=== PATIENT | female | born 2000 | race Caucasian/White ===

== ENCOUNTER → 2021-03-03 | Outpatient (CLI) | payer OTHER | LOC: M LAB 08:55 | PROVIDERS: ATTEND Registered Nurse | DX: Z39.0 Encounter for care and examination of mother immediately after delivery (principal) ==

== ENCOUNTER → 2021-03-06 | Outpatient (CLI) | payer OTHER | LOC: M LAB 09:53 | PROVIDERS: ATTEND Registered Nurse | DX: O36.80X0 Pregnancy with inconclusive fetal viability, not applicable or unspecified (principal); Z3A.00 Weeks of gestation of pregnancy not specified ==

== ENCOUNTER 2021-08-02 17:28 | Outpatient (CLI) | payer OTHER ==
[~2021-08-02] VITALS: Ht 162.6 cm; Wt 70.6 kg
[2021-08-02 17:44] VITALS: BP 112/65
[2021-08-02] MEDS ORDERED: PRENTAB9 PO ×2 (17:53)
[2021-08-02] MEDS ORDERED: ASPI81CH33 PO (17:53)
[2021-08-02 19:01] LABS: APPEARANCE, URINE HAZY (CLEAR); BACTERIA, URINE AUTO 2+ (NEGATIVE); BILIRUBIN, URINE AUTO NEGATIVE (NEGATIVE); BLOOD, URINE BLOOD NEGATIVE (NEGATIVE); COLOR, URINE YELLOW (YELLOW); GLUCOSE, URINE (UA) AUTO 2+ mg/dL (NEGATIVE); KETONE, URINE AUTO NEGATIVE (NEGATIVE); LEUKOCYTE ESTERASE, URINE AUTO 2+ (NEGATIVE); MUCUS, URINE SMALL (NEGATIVE); NITRITE, URINE AUTO NEGATIVE (NEGATIVE); PROTEIN, URINE AUTO NEGATIVE (NEGATIVE); RBC, URINE AUTO 1 /HPF (0-3); SPECIFIC GRAVITY URINE AUTO 1.014 (1.002-1.035); SQUAMOUS EPITHELIAL CELL UR AU 4 /HPF (0-6); WBC, URINE AUTO 4 /HPF (0-3)
[2021-09-14] MEDS ORDERED: ACET325C5 PO (12:10)
== END 2021-10-26 20:54 | disposition home or self-care (01) ==
LOC: M LDO 17:28
PROVIDERS: ATTEND Obstetrics & Gynecology
DX: O26.892 Other specified pregnancy related conditions, second trimester (principal); R25.2 Cramp and spasm; R10.2 Pelvic and perineal pain; Z87.59 Personal history of other complications of pregnancy, childbirth and the puerperium; Z91.013 Allergy to seafood; Z3A.27 27 weeks gestation of pregnancy
CPT/HCPCS: 59025; 81001; 87088; 87186; G0378; G0463

== ENCOUNTER 2021-09-11 11:19 | Outpatient (CLI) | payer OTHER ==
[~2021-09-11] VITALS: Ht 162.6 cm; Wt 71.2 kg
[~2021-09-11 11:19] MED LIST: ASPI81CH33 PO; PRENTAB9 PO
[2021-09-11 11:40] VITALS: BP 115/67
[2021-09-11] MEDS ORDERED: HOME MED LIST COMPLETE! XX SCH (12:20)
[2021-09-11] MEDS ORDERED: BETAMETHASONE SOLUSPAN 6MG/ML 5ML VIAL (J0702 PER 3MG) IM ONE (13:20)
== END 2021-09-11 13:35 | disposition home or self-care (01) ==
LOC: M LDO 11:19
PROVIDERS: ATTEND Obstetrics & Gynecology
DX: O26.893 Other specified pregnancy related conditions, third trimester (principal); R25.2 Cramp and spasm; Z3A.32 32 weeks gestation of pregnancy; O46.93 Antepartum hemorrhage, unspecified, third trimester; Z91.040 Latex allergy status; Z91.013 Allergy to seafood
CPT/HCPCS: 59025; 76815; 96372; G0378; G0463; J0702

== ENCOUNTER 2021-09-12 13:40 | Outpatient (CLI) | payer OTHER ==
[~2021-09-12] VITALS: Ht 162.6 cm; Wt 70.3 kg
[2021-09-12 13:56] VITALS: BP 123/76
[2021-09-12] MEDS ORDERED: HOME MED LIST COMPLETE! XX SCH (14:00)
[2021-09-12] MEDS ORDERED: BETAMETHASONE SOLUSPAN 6MG/ML 5ML VIAL (J0702 PER 3MG) IM ONE (14:10)
[2021-09-12] MEDS ORDERED: cefTRIAXone SOD 2 GM in D5W MINI-BAG PLUS 50 ML IV ONE (15:40)
[2021-09-12 15:41] VITALS: BP 117/69
== END 2021-09-12 17:02 | disposition home or self-care (01) ==
LOC: M LDO 13:40
PROVIDERS: ATTEND Obstetrics & Gynecology
DX: O46.93 Antepartum hemorrhage, unspecified, third trimester (principal); Z3A.32 32 weeks gestation of pregnancy; Z91.040 Latex allergy status; Z91.030 Bee allergy status
CPT/HCPCS: 59025; 81001; 87086; 96365; 96372; G0378; G0463; J0696; J0702

== ENCOUNTER 2021-09-14 11:50 | Outpatient (CLI) | payer OTHER ==
[2021-09-14] VITALS (7 sets, daily range): BP systolic 114–155; BP diastolic 59–77
[~2021-09-14] VITALS: Ht 162.6 cm; Wt 70.3 kg
[2021-09-14] MEDS ORDERED: ACET325C5 PO (12:10)
[2021-09-14 14:54] LABS: GC DNA AMPLIFICATION NEGATIVE (NEGATIVE)
[2021-09-14 14:55] LABS: HEMATOCRIT 34.3 % (36.0-47.0); HEMOGLOBIN 11.3 g/dl (12.0-15.5); MEAN CORPUSCULAR HEMOGLOBIN 29.9 pg (27.0-33.0); MEAN CORPUSCULAR HGB CONC 32.9 g/dl (32.0-36.5); MEAN CORPUSCULAR VOLUME 90.7 fl (80.0-96.0); PLATELET COUNT, AUTOMATED 150 10^3/uL (150-450); RED BLOOD COUNT 3.78 10^6/uL (4.00-5.40); WHITE BLOOD COUNT 8.1 10^3/uL (4.0-10.0)
[2021-09-14 15:10] LABS: INR 0.9; PARTIAL THROMBOPLASTIN TIME 26.4 SECONDS (25.9-37.0); PROTHROMBIN TIME 12.6 SECONDS (12.7-14.5)
[2021-09-14 15:24] LABS: COLLAGEN EPINEPHRINE 201 SECONDS (74-162)
[2021-09-14 15:44] LABS: COLLAGEN ADP 117 SECONDS (56-103)
[2021-09-14] MEDS ORDERED: ACETAMINOPHEN 500 MG TAB PO ONE (20:45)
== END 2021-09-14 21:57 | disposition home or self-care (01) ==
LOC: M LDO 11:50
PROVIDERS: ATTEND Obstetrics & Gynecology
DX: O46.93 Antepartum hemorrhage, unspecified, third trimester (principal); Z3A.33 33 weeks gestation of pregnancy; Z91.040 Latex allergy status; Z91.013 Allergy to seafood; O26.893 Other specified pregnancy related conditions, third trimester; R31.9 Hematuria, unspecified
CPT/HCPCS: 36415; 59025; 76811; 76815; 76820; 81001; 85027; 85384; 85460; 85576; 85610; 85730; 87086; 87810; 87850; G0463

== ENCOUNTER 2021-10-10 21:14 | Outpatient (CLI) | payer OTHER ==
[~2021-10-10] VITALS: Ht 162.6 cm; Wt 71.9 kg
[~2021-10-10 21:14] MED LIST changes: +ACET325C5 PO
[2021-10-10 21:29] VITALS: BP 129/77
[2021-10-10] MEDS ORDERED: HOME MED LIST COMPLETE! XX SCH (21:45)
== END 2021-10-10 22:38 | disposition home or self-care (01) ==
LOC: M LDO 21:14
PROVIDERS: ATTEND Obstetrics & Gynecology
DX: O47.1 False labor at or after 37 completed weeks of gestation (principal); Z3A.37 37 weeks gestation of pregnancy; O36.5930 Maternal care for other known or suspected poor fetal growth, third trimester, not applicable or unspecified; O14.03 Mild to moderate pre-eclampsia, third trimester; Z79.52 Long term (current) use of systemic steroids; Z91.040 Latex allergy status; Z91.013 Allergy to seafood
CPT/HCPCS: 59025; 76815; G0463

== ENCOUNTER → 2021-10-23 | Outpatient (CLI) | payer OTHER ==
[~2021-10-23] VITALS: Ht 162.6 cm; Wt 72.0 kg
[~2021-10-23] MED LIST changes: +HOME MED LIST COMPLETE! XX SCH
[2021-10-23 15:14] VITALS: BP 108/79
[2021-10-23 15:58] VITALS: BP 109/75
== END ==
LOC: M LDO 14:54
PROVIDERS: ATTEND Obstetrics & Gynecology
DX: O36.8130 Decreased fetal movements, third trimester, not applicable or unspecified (principal); Z3A.36 36 weeks gestation of pregnancy; Z91.040 Latex allergy status; Z91.048 Other nonmedicinal substance allergy status; Z91.013 Allergy to seafood
CPT/HCPCS: 59025; G0463

== ENCOUNTER 2021-10-26 18:04 | Outpatient (CLI) | payer OTHER ==
[~2021-10-26] VITALS: Ht 162.6 cm; Wt 72.7 kg
[~2021-10-26 18:04] MED LIST changes: -HOME MED LIST COMPLETE! XX SCH
[2021-10-26 18:30] VITALS: BP 128/90
[2021-10-26 18:55] VITALS: BP 126/80
== END 2021-10-26 20:54 | disposition home or self-care (01) ==
LOC: M LDO 18:04
PROVIDERS: ATTEND Obstetrics & Gynecology
DX: O47.1 False labor at or after 37 completed weeks of gestation (principal); Z3A.39 39 weeks gestation of pregnancy; Z87.59 Personal history of other complications of pregnancy, childbirth and the puerperium
CPT/HCPCS: 59025; G0463

== ENCOUNTER 2021-10-28 14:31 | Outpatient (CLI) | payer OTHER ==
[~2021-10-28] VITALS: Ht 162.6 cm; Wt 72.4 kg
[2021-10-28 14:49] VITALS: BP 133/87
[2021-10-28] MEDS ORDERED: HOME MED LIST COMPLETE! XX SCH (15:00)
== END 2021-10-28 15:45 | disposition home or self-care (01) ==
LOC: M LDO 14:31
PROVIDERS: ATTEND Obstetrics & Gynecology
DX: O47.1 False labor at or after 37 completed weeks of gestation (principal); Z3A.39 39 weeks gestation of pregnancy; Z87.59 Personal history of other complications of pregnancy, childbirth and the puerperium
CPT/HCPCS: 59025; 76815; G0463

== ENCOUNTER 2021-10-29 12:00 | Inpatient (IN) | payer OTHER ==
[~2021-10-29] VITALS: Ht 162.6 cm; Wt 71.8 kg
[2021-10-29 12:13] VITALS: BP 129/83
[2021-10-29] MEDS ORDERED: OXYTOCIN INJ 10 UNITS/ML VIAL (J2590) As Ordered ONE (12:43)
[2021-10-29] MEDS ORDERED: OXYTOCIN 30 UNITS IN 0.9% NaCl 500ML IV BAG (J2590) As Ordered ONE (12:48)
[2021-10-29] MEDS ORDERED: LACTATED RINGER'S 1000 ML IV ONE (12:50)
[2021-10-29] MEDS ORDERED: OXYTOCIN DRIP 30 UNITS in IV 1 EA IV PRN ×4 (12:50)
[2021-10-29] MEDS ORDERED: OXYTOCIN INJ 10 UNITS/ML VIAL (J2590) IV PRN (12:50)
[2021-10-29] MEDS ORDERED: LR 1,000 ML IV SCH ×2 (12:50→14:05)
[2021-10-29] MEDS ORDERED: METHYLERGONOVINE MALEATE 0.2 MG/ML VIAL (J2210) IM PRN (12:50)
[2021-10-29] MEDS ORDERED: TRANEXAMIC ACID INJection 1,000 MG in NS 100 ML IV PRN (12:50)
[2021-10-29] MEDS ORDERED: HOME MED LIST COMPLETE! XX SCH (12:55)
[2021-10-29 13:01] LABS: HEMOGLOBIN 12.5 g/dl (12.0-15.5); MEAN CORPUSCULAR HEMOGLOBIN 28.1 pg (27.0-33.0); MEAN CORPUSCULAR HGB CONC 32.9 g/dl (32.0-36.5); MEAN CORPUSCULAR VOLUME 85.4 fl (80.0-96.0); PLATELET COUNT, AUTOMATED 176 10^3/uL (150-450); RED BLOOD COUNT 4.45 10^6/uL (4.00-5.40)
[2021-10-29 13:20] LABS: CORD GAS ABE A -0.8; CORD GAS HCO3 A 24.1 MEQ/L; CORD GAS O2 SAT A 24.8 %; CORD GAS PCO2 A 40.7 mmHg; CORD GAS PH A 7.39 UNITS; CORD GAS PO2 A 12.5 mmHg; CORD GAS TCO2 A 25.3 MEQ/L
[2021-10-29 13:22] LABS: CORD GAS ABE V -0.5; CORD GAS HCO3 V 23.2 MEQ/L; CORD GAS O2 SAT V 50.6 %; CORD GAS PCO2 V 35.5 mmHg; CORD GAS PH V 7.433 UNITS; CORD GAS PO2 V 19.3 mmHg; CORD GAS SBC V 22.9 MEQ/L; CORD GAS TCO2 V 24.3 MEQ/L
[2021-10-29 13:25] VITALS: BP 136/90
[2021-10-29 13:55] VITALS: BP 118/73
[2021-10-29] MEDS ORDERED: OXYTOCIN INJ 10 UNITS/ML VIAL (J2590) IV ONE (14:05)
[2021-10-29] MEDS ORDERED: METHYLERGONOVINE MALEATE 0.2 MG TAB PO PRN (14:05)
[2021-10-29] MEDS ORDERED: ACETAMINOPHEN TAB 650MG DOSE (2X325MG) PO PRN (14:05)
[2021-10-29] MEDS ORDERED: OXYTOCIN DRIP 30 UNITS in IV 1 EA IV SCH (14:05)
[2021-10-29] MEDS ORDERED: IBUPROFEN 600MG TAB PO PRN (14:05)
[2021-10-29] MEDS ORDERED: OXYTOCIN DRIP 30 UNITS in IV 1 EA IV ONE (14:05)
[2021-10-29] MEDS ORDERED: MOM 30ML SUSPENSION UDC PO PRN (14:05)
[2021-10-29] MEDS ORDERED: ANUSOL HC CREAM 30GM TOP PRN (14:05)
[2021-10-29] MEDS ORDERED: ACETAMINOPHEN 500 MG TAB PO PRN (14:05)
[2021-10-29] MEDS ORDERED: DOCUSATE SODIUM 100MG CAPSULE PO PRN (14:05)
[2021-10-29] MEDS ORDERED: DIBUCAINE 1% OINTMENT 30GM TOP PRN (14:05)
[2021-10-29] MEDS ORDERED: RHOGAM 300 MCG (1500 IU) INJ (J2790) IM SCH (14:05)
[2021-10-29 14:10] VITALS: BP 122/78
[2021-10-29 15:25] VITALS: BP 123/80
[2021-10-29 17:58] VITALS: BP 121/76
[2021-10-30 05:28] VITALS: BP 128/69
[2021-10-30] MEDS ORDERED: PRENCHW PO (07:19)
[2021-10-30] MEDS ORDERED: COLA100C5 PO (07:19)
[2021-10-30] MEDS ORDERED: IBUP-1022 PO (07:19)
[2021-10-30 07:31] LABS: HEMOGLOBIN 11.2 g/dl (12.0-15.5); MEAN CORPUSCULAR HEMOGLOBIN 28.2 pg (27.0-33.0); MEAN CORPUSCULAR HGB CONC 32.9 g/dl (32.0-36.5); MEAN CORPUSCULAR VOLUME 85.6 fl (80.0-96.0); PLATELET COUNT, AUTOMATED 148 10^3/uL (150-450); RED BLOOD COUNT 3.97 10^6/uL (4.00-5.40); WHITE BLOOD COUNT 9.2 10^3/uL (4.0-10.0)
[2021-10-30] MEDS ORDERED: PRENATAL VITAMINS CHEWABLE TABLET PO SCH (09:00)
[2021-10-31] MEDS ORDERED: MEASLES,MUMPS,RUBELLA VACCINE INJ (MMR-II) (90707) SC.IMMUN ONE (09:00)
== END 2021-10-30 14:40 | disposition home or self-care (01) | DRG 807 ==
LOC: M LDO 12:00 → M LDI 12:40 → M OBS 15:12
PROVIDERS: ADMIT Obstetrics & Gynecology; ATTEND Obstetrics & Gynecology
PROC: 10E0XZZ Delivery of Products of Conception, External Approach (ICD-10-PCS; principal; 2021-10-29)
DX: O62.3 Precipitate labor (principal); Z37.0 Single live birth; Z3A.39 39 weeks gestation of pregnancy; O69.81X0 Labor and delivery complicated by cord around neck, without compression, not applicable or unspecified